=== PATIENT | male | born 1975 | race African-American/Black ===

== ENCOUNTER 2022-07-11 03:48 | Inpatient (IN) | payer OTHER ==
[2022-07-11 04:19] VITALS: BMI 28.2
[2022-07-11] MEDS ORDERED: NALOXONE HCL (KLOXXADO) 8 MG SPRAY NS PRN (08:46)
[2022-07-11] MEDS ORDERED: LOPERAMIDE HCL 2 MG CAPSULE PO PRN (08:46)
[2022-07-11] MEDS ORDERED: BENZOCAINE/MENTHOL (CHLORASEPTIC ) LOZENGE MM PRN (08:46)
[2022-07-11] MEDS ORDERED: hydrOXYzine PAMOATE 25 MG CAPSULE (FP) PO PRN (08:46)
[2022-07-11] MEDS ORDERED: guaiFENesin 600 MG TABLET.ER (FP) PO PRN (08:46)
[2022-07-11] MEDS ORDERED: BENZONATATE 200 MG CAPSULE PO PRN (08:46)
[2022-07-11] MEDS ORDERED: POLYETHYLENE GLYCOL (HEALTHYLAX) 3350 17 GM PACKET PO PRN (08:46)
[2022-07-11] MEDS ORDERED: IBUPROFEN 600 MG TABLET (FP) PO PRN (08:46)
[2022-07-11] MEDS ORDERED: NICOTINE 14 MG/24 HOURS TOPICAL PATCH TD PRN (08:46)
[2022-07-11] MEDS ORDERED: NALOXONE HCL 0.4 MG/ML VIAL IM PRN (08:46)
[2022-07-11] MEDS ORDERED: NICOTINE 10 MG CARTRIDGE (INHALER) IH PRN (08:46)
[2022-07-11] MEDS ORDERED: MAGNESIUM HYDROX 2400MG/30ML ORAL SUSPENSION 30 ML CUP PO PRN (08:46)
[2022-07-11] MEDS ORDERED: MAG HYDROX/AL HYDROX/SIMETH 30 ML UNIT-DOSE CUP PO PRN (08:46)
[2022-07-11] MEDS ORDERED: NICOTINE POLACRILEX 4 MG GUM BUC PRN (08:46)
[2022-07-11] MEDS ORDERED: methaDONE HCL 40 MG DISPERSABLE TABLET PO ONE (09:30)
[2022-07-11] MEDS ORDERED: PRENATAL VITAMINS W/ FOLIC ACID TABLET (FP) PO ONE (10:19)
[2022-07-11] MEDS: PRENATAL VITAMINS W/ FOLIC ACID TABLET (FP) PO SCH (10:31)
[2022-07-11] MEDS ORDERED: ALBUTEROL SO4 HFA INHALER IH PRN (16:08)
[2022-07-11 17:27] LABS: MEAN CELL VOLUME 84.8 fl (80-96); WHITE BLOOD COUNT 4.8 K/mm3 (4.0-10.0)
[2022-07-11 17:29] LABS: HEMATOCRIT 40.6 % (35.4-49); MCH 27.2 pg (25.7-33.7); MCHC 32.1 g/dl (32.0-35.9); MEAN PLT VOLUME 7.9 fl (7.5-11.1); PLATELET COUNT 260 10^3/uL (134-434); RBC 4.78 M/mm3 (4.00-5.60); RDW 16.6 % (11.9-15.9)
[2022-07-11 17:38] LABS: CALCIUM 9.4 mg/dL (8.5-10.1)
[2022-07-11 17:39] LABS: ALBUMIN 3.9 g/dl (3.4-5.0); BLOOD UREA NITROGEN 12.6 mg/dL (7-18)
[2022-07-11 17:42] LABS: CREATININE 1.2 mg/dL (0.55-1.3)
[2022-07-11 17:43] LABS: BILIRUBIN,TOTAL 0.6 mg/dL (0.2-1); TOT PROT 7.6 g/dl (6.4-8.2)
[2022-07-11 17:59] LABS: SYPHILIS W/ RPR CONF NON-REACTIVE (NONREACTIVE)
[2022-07-11] MEDS: MELATONIN 5 MG TABLETS PO SCH (22:28)
[2022-07-11] MEDS: THIAMINE HCL 100 MG TABLET (FP) PO SCH (22:28)
[2022-07-12] MEDS ORDERED: TUBERCULIN PPD 5 TU/0.1ML VIAL ID ONE (00:08)
[2022-07-12] MEDS: methaDONE HCL 40 MG DISPERSABLE TABLET PO SCH (06:39)
[2022-07-12] MEDS: PRENATAL VITAMINS W/ FOLIC ACID TABLET (FP) PO SCH (10:11)
[2022-07-12] MEDS: ACETAMINOPHEN 325 MG TABLET (FP) PO PRN (10:12)
[2022-07-12 14:55] LABS: PH,URINE 8.5 (5.0-8.0); URINE APPEARANCE CLEAR; URINE BILIRUBIN NEGATIVE (NEGATIVE); URINE COLOR YELLOW; URINE GLUCOSE (UA) NEGATIVE (NEGATIVE); URINE KETONE NEGATIVE (NEGATIVE); URINE LEUK ESTERASE NEGATIVE (NEGATIVE); URINE NITRITE NEGATIVE (NEGATIVE); URINE PROTEIN NEGATIVE (NEGATIVE); URINE UROBILINOGEN 0.2 mg/dL (0.2-1.0)
[2022-07-12] MEDS: MELATONIN 5 MG TABLETS PO SCH (21:52)
[2022-07-12] MEDS: THIAMINE HCL 100 MG TABLET (FP) PO SCH (21:52)
[2022-07-13] MEDS: methaDONE HCL 40 MG DISPERSABLE TABLET PO SCH (06:31)
[2022-07-13] MEDS: PRENATAL VITAMINS W/ FOLIC ACID TABLET (FP) PO SCH (10:00)
[2022-07-13] MEDS: IBUPROFEN 400 MG TABLET (FP) PO PRN (11:55)
[2022-07-13] MEDS: MELATONIN 5 MG TABLETS PO SCH (21:54)
[2022-07-13] MEDS: THIAMINE HCL 100 MG TABLET (FP) PO SCH (21:54)
[2022-07-14] MEDS: methaDONE HCL 40 MG DISPERSABLE TABLET PO SCH (06:45)
[2022-07-14] MEDS: ACETAMINOPHEN 325 MG TABLET (FP) PO PRN (09:20)
[2022-07-14] MEDS: PRENATAL VITAMINS W/ FOLIC ACID TABLET (FP) PO SCH (09:20)
[2022-07-14] MEDS: LIDOCAINE 5% TOPICAL PATCH TP SCH (11:00)
[2022-07-14] MEDS: MELATONIN 5 MG TABLETS PO SCH (21:24)
[2022-07-14] MEDS: THIAMINE HCL 100 MG TABLET (FP) PO SCH (21:24)
[2022-07-14] MEDS: LIDOCAINE PATCH REMOVAL MC SCH (21:24)
[2022-07-15] MEDS: methaDONE HCL 40 MG DISPERSABLE TABLET PO SCH (06:44)
[2022-07-15] MEDS: PRENATAL VITAMINS W/ FOLIC ACID TABLET (FP) PO SCH (09:42)
[2022-07-15] MEDS: LIDOCAINE 5% TOPICAL PATCH TP SCH (09:42)
[2022-07-15] MEDS: IBUPROFEN 400 MG TABLET (FP) PO PRN (09:43)
[2022-07-15] MEDS: METHOCARBAMOL 500 MG TABLET PO PRN (15:34)
[2022-07-15] MEDS: THIAMINE HCL 100 MG TABLET (FP) PO SCH (21:59)
[2022-07-15] MEDS: LIDOCAINE PATCH REMOVAL MC SCH (21:59)
[2022-07-15] MEDS: MELATONIN 5 MG TABLETS PO SCH (21:59)
[2022-07-16] MEDS: methaDONE HCL 40 MG DISPERSABLE TABLET PO SCH (06:53)
[2022-07-16] MEDS: LIDOCAINE 5% TOPICAL PATCH TP SCH (09:44)
[2022-07-16] MEDS: METHOCARBAMOL 500 MG TABLET PO PRN (09:44)
[2022-07-16] MEDS: PRENATAL VITAMINS W/ FOLIC ACID TABLET (FP) PO SCH (09:44)
[2022-07-16] MEDS: ONDANSETRON *ODT* 4 MG TABLET SL PRN (18:04)
[2022-07-16] MEDS: MELATONIN 5 MG TABLETS PO SCH (21:31)
[2022-07-16] MEDS: THIAMINE HCL 100 MG TABLET (FP) PO SCH (21:31)
[2022-07-16] MEDS: LIDOCAINE PATCH REMOVAL MC SCH (21:31)
[2022-07-16 23:16] VITALS: TEMP 97.7
[2022-07-17] MEDS: ONDANSETRON *ODT* 4 MG TABLET SL PRN (06:51)
[2022-07-17 07:33] VITALS: BP 123/81; PULSE 81; RESP 18
[2022-07-17] MEDS: methaDONE HCL 40 MG DISPERSABLE TABLET PO SCH (07:47)
[2022-07-17] MEDS: PRENATAL VITAMINS W/ FOLIC ACID TABLET (FP) PO SCH (10:09)
[2022-07-17] MEDS: LIDOCAINE 5% TOPICAL PATCH TP SCH ×2 (10:09→10:12)
[2022-07-18] MEDS ORDERED: methaDONE HCL 40 MG DISPERSABLE TABLET PO SCH (06:00)
== END 2022-07-17 14:35 | disposition left against medical advice (07) | DRG 770 ==
LOC: YASAS 03:48 → Y3E 12:34
PROVIDERS: ADMIT Allergy & Immunology; ATTEND Allergy & Immunology
PROC: HZ42ZZZ Group Counseling for Substance Abuse Treatment, Cognitive-Behavioral (ICD-10-PCS; principal; 2022-07-11)
DX: F14.20 Cocaine dependence, uncomplicated (principal); F11.20 Opioid dependence, uncomplicated; F12.20 Cannabis dependence, uncomplicated; M54.50 Low back pain, unspecified; G89.29 Other chronic pain; R11.2 Nausea with vomiting, unspecified; Z87.891 Personal history of nicotine dependence; Z87.19 Personal history of other diseases of the digestive system; Z87.09 Personal history of other diseases of the respiratory system; Z87.820 Personal history of traumatic brain injury; F91.8 Other conduct disorders; Z91.199 Patient's noncompliance with other medical treatment and regimen due to unspecified reason
CPT/HCPCS: 36415; 80053; 81003; 85027; 86780; 86803; 87811; C9803-CS; Q0162; U0003; U0005